=== PATIENT | male | born 1995 | race Caucasian/White ===

== ENCOUNTER 2023-08-07 05:09 | Emergency (ER) | payer BC ==
[~2023-08-07] VITALS: Ht 170.2 cm; Wt 78.0 kg
[~2023-08-07 05:09] MED LIST: NORCO 5-325 TA1 EACH PO
[2023-08-07] MEDS ORDERED: CYCLOBENZAPRINE10 MG PO (07:12)
[2023-08-07] MEDS ORDERED: HYDROCODON-ACE1 EA10 PO (07:12)
[2023-08-07 07:26] VITALS: BP 158/87
== END 2023-08-07 07:27 | disposition home or self-care (01) ==
LOC: ED 05:09
DX: M54.2 Cervicalgia (principal)
CPT/HCPCS: 72125; 99283-25; A9270